=== PATIENT | male | born 1965 | race Caucasian/White ===

== ENCOUNTER 2016-07-03 23:55 | Inpatient (IN) | payer OTHER ==
[~2016-07-03] VITALS: Ht 177.8 cm; Wt 91.0 kg
[~2016-07-03 23:55] MED LIST: ACET500T98 PO; ASPI-535 PO; FISH OIL; GABA300C16 PO; HUMALOG; LANT3I SC; LISI10TA2 PO; METF-382 PO; OMEP20CA16 PO; PRAV10TA43 PO; [UNRECOGNIZED DRUG - OTHER]
[2016-07-04] VITALS (12 sets, daily range): BP systolic 118–138; BP diastolic 56–81; PULSE 71–84; RESP 18–20; Ht 177.8 cm; Wt 91.0 kg
[2016-07-04] MEDS ORDERED: INSU100I27 SQ (00:13)
[2016-07-04] MEDS ORDERED: LOSA100T7 PO (00:13)
[2016-07-04] MEDS ORDERED: AMLO-145 PO (00:13)
[2016-07-04] MEDS ORDERED: SITA100T8 PO (00:13)
[2016-07-04] MEDS ORDERED: TRAM50TA2 PO (00:13)
[2016-07-04] MEDS ORDERED: GEMF600T60 PO (00:13)
[2016-07-04] MEDS ORDERED: NITROGLYCERIN (SL) 0.4 MG TAB SL PRN (01:00)
[2016-07-04] MEDS ORDERED: GLUCOSE GEL 15 GRAM TUBE BUCCAL PRN (01:30)
[2016-07-04] MEDS ORDERED: DEXTROSE 50% 50 ML SYRINGE IV PRN ×2 (01:30)
[2016-07-04] MEDS ORDERED: INSULIN GLARGINE [LANtus] 3 ML PEN SC SCH ×2 (01:30→21:00)
[2016-07-04] MEDS ORDERED: GLUCOSE GEL 15 GRAM TUBE PO PRN ×2 (01:30)
[2016-07-04] MEDS ORDERED: GLUCAGON 1 MG INJ IM PRN (01:30)
[2016-07-04] MEDS ORDERED: traMADol 50 MG TAB PO PRN (01:30)
[2016-07-04] MEDS ORDERED: ACETAMINOPHEN 500 MG TAB PO PRN (01:30)
[2016-07-04] MEDS: morphine 2 MG INJ IV PRN ×4 (01:45→20:31)
[2016-07-04] MEDS: PANTOPRAZOLE (EC) 40 MG TAB PO SCH (06:13)
[2016-07-04] MEDS: IBUPROFEN 400 MG TAB PO PRN (06:57)
[2016-07-04 07:49] LABS: ADD SCAN DIFF NO
[2016-07-04] MEDS ORDERED: metFORMIN 500 MG TAB PO SCH (07:55)
[2016-07-04 07:57] LABS: BASOPHILS % 0.5 % (0.0-2.0); EOSINOPHILS # 0.2 10^3/ul (0.0-0.5); HEMATOCRIT 39.6 % (42.0-52.0); HEMOGLOBIN 12.9 g/dl (14.0-18.0); LYMPHOCYTES # 1.8 10^3/ul (0.8-2.9); LYMPHOCYTES % 32.4 % (15.0-51.0); MEAN CORPUSCULAR HEMOGLOBIN 28.3 pg (29.0-33.0); MEAN CORPUSCULAR HGB CONC 32.6 g/dl (32.0-37.0); MEAN CORPUSCULAR VOLUME 86.8 fl (82.0-101.0); MEAN PLATELET VOLUME 9.7 fl (7.4-10.4); MONOCYTE # 0.4 10^3/ul (0.3-0.9); MONOCYTES % 7.2 % (0.0-11.0); NEUTROPHIL # 3.1 10^3/ul (1.6-7.5); NEUTROPHILS % 55.5 % (39.0-77.0); PLATELET COUNT 232 10^3/UL (140-415); RED BLOOD COUNT 4.56 10^6/ul (4.70-6.10); RED CELL DISTRIBUTION WIDTH 14.8 % (11.5-14.5); WHITE BLOOD COUNT 5.5 10^3/ul (4.8-10.8)
[2016-07-04 08:06] LABS: ALBUMIN 3.4 g/dl (3.3-4.9)
[2016-07-04 08:07] LABS: POTASSIUM 4.4 mmol/L (3.5-5.1)
[2016-07-04 08:09] LABS: BILIRUBIN,INDIRECT 0.2 mg/dl (0-1.1); BILIRUBIN,TOTAL 0.2 mg/dl (0.2-1.3); CREATININE 1.35 mg/dl (0.61-1.24); TOTAL PROTEIN 6.8 g/dl (6.1-8.1)
[2016-07-04 08:10] LABS: CALCIUM 8.3 mg/dl (8.4-10.2); CHOL/HDL RATIO 3.7 RATIO
--- NOTE | 2016-07-04 08:20 | HP ---
DATE OF ADMISSION: 07/03/2016 TIME SEEN: 2300 CHIEF COMPLAINT: Headache, neck pain, and chest pain. HISTORY OF PRESENT ILLNESS: The patient is a 50-year-old male with a history of hypertension, diabe min, herniated disk with chronic neck and back pain who initially presented at [facility] with the osvaldo pandey-stated chief complaint. He stated his chest pain is pressure-like and is diffuse with associat ed numbness on his left hand. His chest pain started about 4 days ago. He stated he has been havin g chest pain for the past 2 years, and nowadays he has also noted shortness of breath with exertion. His chest pain is also somehow worse with exertion. He states he has been following with a cardio logist as an outpatient, and the plan was for cardiac catheterizations, but due to insurance reasons it has not been done yet. As far as his headache is concerned, it also started about 4 days ago an d it is diffuse and radiates down his back of the neck to his upper back. He stated he works with [employer] and about 2 years ago he was told that he had 3 herniated disks in the lumbar area as well as some herniated disk in the upper back. He denied any fever, chills, nausea, vomiting. On physical examination, I have noticed that he had a swollen left elbow and at that time, he stated th at months ago he actually fell down, hitting his elbow, and since then he has noticed elbow swelling which appears to be fluid filled. He did go to a hospital for this, and he thinks he was given ant ibiotic or some other medication which he does remember, but without any help. When the patient was at [facility], a head CT was done which was negative. A chest x-ray was also n egative. His first troponin was negative. Laboratory value over there showed a creatinine of 1.65, and it appears that in 2013, his creatinine was 1.39. His glucose was 245. Otherwise, the rest of his basic labs were within acceptable range. REVIEW OF SYSTEMS: A 12-point review was performed. Negative except as noted in the HPI. PAST MEDICAL HISTORY: As per HPI. PAST SURGICAL HISTORY: Hernia repair in 2014 and also he had a history of right knee surgery. SOCIAL HISTORY: He smoked a pack or 2 per day for over 20 years, but he quit a year ago. He did sm jayne cocaine for about a year in the past, the last time was about 4 years ago, and drinks alcohol oc casionally. ALLERGIES: NO KNOWN DRUG ALLERGIES. PHYSICAL EXAMINATION VITAL SIGNS: Stable. GENERAL: The patient lying in bed, appears slightly uncomfortable due to headache. He is Macanese-s peaking only, but answering questions appropriately through a interpreter deaf. HEENT: No obvious head deformity. Pupils are reactive to light. EXTREMITIES: Intact. CARDIOVASCULAR: Regular rate and rhythm ____. LUNGS: Clear. ABDOMEN: Soft, nontender, nondistended. Positive bowel sounds. EXTREMITIES: There is swelling with very minimal discomfort to touch in the elbow area which appear s to be fluid-filled. LABORATORY: Pertinent positive results from [facility] as mentioned in the HPI. IMPRESSION: 1. Chest pain, need to rule out acute coronary syndrome. 2. Headache and neck pain, likely related to his known herniated disk. 3. Presumed acute on chronic kidney disease. 4. Diabetes with hyperglycemia. 5. History of hypertension. 6. Left elbow swelling, status post fall 3 months ago. 7. History of chronic back pain secondary to herniated disk. PLAN: Continue telemetry monitoring. We will trend his troponins. He will be placed on oxygen, as pirin, statin, and will be given as needed nitroglycerin and morphine. We will obtain a 2-D echo an d cardiology consult. As far as his headache and neck pain is concerned, a head CT at [facility] wa s negative. It seems like his neck pain is chronic and has been going on for about 2 years along wi th his lower back pain, and according to the patient, it is secondary to herniated disk. Will obtai n imaging of his spine. He will be provided pain medication. He will be placed on insulin for his diabetes and will check A1c along with fasting lipid and TSH. As far as his left elbow swelling is concerned, I believe it needs to be tapped, but prior to that, will order imaging. Further workup and management will be per clinical course. Dictated By: MARY KATE MCDONOUGH/MANDA Conf#: [id number] DID#: [id number]
[2016-07-04] MEDS: AMLODIPINE 5 MG TAB PO SCH (08:28)
[2016-07-04] MEDS: GABAPENTIN 300 MG CAP PO SCH ×3 (08:28→20:32)
[2016-07-04] MEDS: GEMFIBROZIL 600 MG TAB PO SCH ×2 (08:28→20:32)
[2016-07-04] MEDS: ASPIRIN (EC) 81 MG TAB PO SCH (08:29)
[2016-07-04] MEDS: LOSARTAN 50 MG TAB PO SCH (08:29)
[2016-07-04] MEDS: LISINOPRIL 10 MG TAB PO SCH (08:29)
[2016-07-04] MEDS: LINAGLIPTIN 5 MG TABLET PO SCH (08:29)
[2016-07-04] MEDS: INSULIN ASPART [NOVOLOG] 3 ML PEN SC SCH ×6 (08:33→20:51)
--- NOTE | 2016-07-04 09:40 | RADRPT ---
PROCEDURE: XR Chest 1 View. CLINICAL INDICATION: Chest pain TECHNIQUE: AP view of the chest was obtained. COMPARISON: February 01, 2014 FINDINGS: The cardiomediastinal silhouette is within normal limits. Subsegmental atelectasis is seen at the le ft lung base. No consolidations are identified. No pneumothorax is seen. Osseous structures are in tact. IMPRESSION: Subsegmental atelectasis at the left lung base. RPTAT: AA .Michael Brambila MD, Date Time Electronically viewed and signed by .Michael Brambila MD, on 07/04/2016 09:39 .P/
--- NOTE | 2016-07-04 12:32 | PN ---
Date/Time of Note Date/Time of Note DATE: 07/04/16 TIME: 12:26 Assessment/Plan VTE Prophylaxis VTE Prophylaxis Intervention: SCD's Lines/Catheters IV Catheter Type (from Nrs): Peripheral IV Urinary Cath still in place: No Assessment/Plan Assessment/Plan 1. atypical chest pain, troponins negative, ECHO done, to see pt 2. Headache and neck pain, likely related to his known herniated disk. 3. [facility] oN CKD due to prerenal azotemia 4. Diabetes with hyperglycemia. 5. History of hypertension. 6. Left elbow swelling and cellulitis , status post fall 3 months ago. 7. History of chronic back pain secondary to herniated disk. PLAN: plan for left elbow arthrocentesis today, fluid studies ordered d/c metformi, increase lantus to 20, add novolog 8 units with meal time Cadiologist consulted, ECHO has been ordered will follow up Subjective 24 Hr Interval Summary Free Text/Dictation no chest pain, elbow painful, plan for arthrocentesis from it , onIV abx, afebrile Exam/Review of Systems Vital Signs Vitals Vital Signs Date Time Temp Pulse Resp B/P Pulse Ox O2 Delivery O2 Flow Rate FiO2 07/04/16 08:11 75 07/04/16 07:31 98.6 18 127/72 95 Intake and Output 07/03/16 07/03/16 07/04/16 15:00 23:00 07:00 Intake Total 250 ml Balance 250 ml Exam GENERAL: The patient lying in bed, appears slightly uncomfortable due to headache. He is [place]bourgish-speaking only, but answering questions appropriately through a field support representative. HEENT: No obvious head deformity. Pupils are reactive to light. EXTREMITIES: Intact. CARDIOVASCULAR: Regular rate and rhythm ____. LUNGS: Clear. ABDOMEN: Soft, nontender, nondistended. Positive bowel sounds. EXTREMITIES: There is swelling with very minimal discomfort to touch in the elbow area which appears to be fluid-filled Results Result Diagram: 07/04/16 0640 07/04/16 0640 Results 24 hrs Laboratory Tests Test 07/04/16 00:34 07/04/16 01:20 07/04/16 06:40 07/04/16 08:04 Bedside Glucose 91 317 H Troponin I < 0.012 < 0.012 White Blood Count 5.5 # Red Blood Count 4.56 L Hemoglobin 12.9 L Hematocrit 39.6 L Mean Corpuscular Volume 86.8 Mean Corpuscular Hemoglobin 28.3 L Mean Corpuscular Hemoglobin Concent 32.6 Red Cell Distribution Width 14.8 H Platelet Count 232 Mean Platelet Volume 9.7 # Neutrophils % 55.5 Lymphocytes % 32.4 Monocytes % 7.2 Eosinophils % 4.0 Basophils % 0.5 Nucleated Red Blood Cells % 0.0 Neutrophils # 3.1 Lymphocytes # 1.8 Monocytes # 0.4 Eosinophils # 0.2 Basophils # 0.0 Nucleated Red Blood Cells # 0.0 Sodium Level 133 L Potassium Level 4.4 Chloride Level 100 Carbon Dioxide Level 28 Anion Gap 9 Blood Urea Nitrogen 25 H Creatinine 1.35 H Glucose Level 355 H Hemoglobin A1c 12.2 H Calcium Level 8.3 L Total Bilirubin 0.2 Direct Bilirubin 0.00 Indirect Bilirubin 0.2 Aspartate Amino Transf (AST/SGOT) 25 Alanine Aminotransferase (ALT/SGPT) 37 Alkaline Phosphatase 102 Total Protein 6.8 Albumin 3.4 Globulin 3.40 H Albumin/Globulin Ratio 1.00 Triglycerides Level 185 H Cholesterol Level 173 LDL Cholesterol, Calculated 90 HDL Cholesterol 46 Cholesterol/HDL Ratio 3.7 Medications Medications Current Medications Insulin Glargine (Lantus) 15 unit QHS SC Last administered on 07/04/16 02:46; Admin Dose 15 UNIT; Start 07/04/16 at 01:30 Diagnostic Test (Pha) (Accu-Chek) 1 ea 02 XX ; Start 07/05/16 at 02:00 Morphine Sulfate (morphine) 2 mg Q4H PRN IV PAIN Last administered on 06:57; Admin Dose 2 MG; Start 07/04/16 at 01:00 Ibuprofen (Motrin) 400 mg Q6H PRN PO PAIN OR TEMP ABOVE 38C Last administered on 07/04/16 06:57; Admin Dose 400 MG; Start 07/04/16 at 01:00 Nitroglycerin (Nitroglycerin (Sl Tab) 0.4 Mg) 1 tab Q5M PRN SL ANGINA; Start at 01:00 Acetaminophen (Tylenol Tab) 500 mg PRN PRN PO PAIN; Start 07/04/16 at 01:30 Amlodipine Besylate (Norvasc) 5 mg DAILY PO Last administered on 07/04/16 08: 28; Admin Dose 5 MG; Start 07/04/16 at 09:00 Aspirin (Halfprin) 81 mg DAILY PO Last administered on 07/04/16 08:29; Admin Dose 81 MG; Start 07/04/16 at 09:00 Gabapentin (Neurontin) 300 mg TID PO Last administered on 07/04/16 08:28; Admin Dose 300 MG; Start 07/04/16 at 09:00 Gemfibrozil (Lopid) 600 mg BID PO Last administered on 07/04/16 08:28; Admin Dose 600 MG; Start 07/04/16 at 09:00 Lisinopril (Zestril) 10 mg DAILY PO Last administered on 07/04/16 08:29; Admin Dose 10 MG; Start 07/04/16 at 09:00 Losartan Potassium (Cozaar) 100 mg DAILY PO Last administered on 07/04/16 08: 29; Admin Dose 100 MG; Start 07/04/16 at 09:00 Pantoprazole (Protonix Tab) 40 mg DAILY@06 PO Last administered on 07/04/16 06 :13; Admin Dose 40 MG; Start 07/04/16 at 06:00 Atorvastatin Calcium (Lipitor) 10 mg DAILY@21 PO ; Start 07/04/16 at 21:00 Linagliptin (Tradjenta) 5 mg DAILY PO Last administered on 07/04/16 08:29; Admin Dose 5 MG; Start 07/04/16 at 09:00 Tramadol HCl (Ultram) 50 mg BID PRN PO PAIN Last administered on 07/04/16 01: 46; Admin Dose 50 MG; Start 07/04/16 at 01:30 Miscellaneous Information 1 ea NOTE XX ; Start 07/04/16 at 01:30 Glucose (Glutose) 15 gm Q15M PRN PO DECREASED GLUCOSE; Start 07/04/16 at 01:30 Glucose (Glutose) 22.5 gm Q15M PRN PO DECREASED GLUCOSE; Start 07/04/16 at 01: 30 Dextrose (D50w Syringe) 25 ml Q15M PRN IV DECREASED GLUCOSE; Start 07/04/16 at 01:30 Dextrose (D50w Syringe) 50 ml Q15M PRN IV DECREASED GLUCOSE; Start 07/04/16 at 01:30 Glucagon (Glucagen) 1 mg Q15M PRN IM DECREASED GLUCOSE; Start 07/04/16 at 01:30 Glucose (Glutose) 15 gm Q15M PRN BUCCAL DECREASED GLUCOSE; Start 07/04/16 at 01 :30 MELISA VALENCIA MD Jul 04, 2016 12:32
[2016-07-04 13:39] LABS: SYNOVIAL FLUID CLARITY Bloody; SYNOVIAL FLUID COLOR Red; SYNOVIAL FLUID WBC 474 /cmm (0-150)
[2016-07-04 14:02] LABS: LYMPHOCYTES,SYNOVIAL FLUID 61; NEUTROPHILS,SYNOVIAL FLUID 22 % (0-25)
[2016-07-04 14:09] LABS: FLUID TYPE SYNOVIAL FLUID
[2016-07-04 14:21] LABS: FLUID GLUCOSE 264 mg/dl; FLUID TOTAL PROTEIN 2.1 g/dl
--- NOTE | 2016-07-04 14:38 | RADRPT ---
PROCEDURE: Ultrasound guided left elbow subcutaneous fluid collection aspiration. CLINICAL INDICATION: History of trauma and fluid collection overlying the left elbow posteriorly. TECHNIQUE: Prior to the procedure, informed consent was obtained. Risks including bleeding and in fection were explained to the patient. The patient understood was willing to proceed. A procedural pause was performed. The patient's name, date of , and procedure to be performed were verifie d. Using local anesthetic, sterile technique and ultrasound guidance, a 20-gauge needle was advanced in to the fluid collection in the left elbow lobe. Approximately 7 ml of serosanguineous fluid was asp irated. The patient tolerated the procedure well. COMPARISON: None. FINDINGS: Images demonstrate the fluid collection posterior to the elbow within the soft tissues. Subsequent images demonstrate the needle entering the fluid collection and final images demonstrate only minima l fluid left at the site. IMPRESSION: 1. Satisfactory ultrasound-guided aspiration of the left posterior elbow fluid collection. RPTAT: QQ .Sandro Wynn MD, Date Time Electronically viewed and signed by .Sandro Wynn MD, on 07/04/2016 14:37 .R/
--- NOTE | 2016-07-04 14:49 | RADRPT ---
PROCEDURE: XR left elbow. CLINICAL INDICATION: Trauma due to a fall. Left elbow pain and swelling. TECHNIQUE: 3 views. Frontal, lateral, and oblique. COMPARISON: No prior study is available for comparison. FINDINGS: There is no fracture or dislocation. There is soft tissue swelling posterior to the olecranon. There is an olecranon spur. There is no joint effusion. Articular surfaces are intact. There is no lytic or blastic lesion. There is no radiopaque foreign body. IMPRESSION: 1. Olecranon spur. 2. Soft tissue swelling posterior to the olecranon. 3. No joint effusion. 4. Otherwise normal images of the left elbow. RPTAT: QQ .Sandro Wynn MD, MD Date Time Electronically viewed and signed by .Sandro Wynn MD, on 07/04/2016 14:48 .R/
--- NOTE | 2016-07-04 14:49 | RADRPT ---
PROCEDURE: XR Thoracic Spine. CLINICAL INDICATION: Trauma due to a fall. Back pain. TECHNIQUE: Three views. Frontal, lateral, and lateral swimmers. COMPARISON: None available FINDINGS: There is normal stature and alignment of the vertebrae. There is no fracture. There is no lytic or blastic lesion. The disk height is normal. There are degenerative changes with small osteophytes in the mid thoraci c spine. The paravertebral soft tissues are unremarkable. IMPRESSION: 1. Mild degenerative change. 2. Otherwise unremarkable images of the thoracic spine. RPTAT: QQ .Sandro Wynn MD, Date Time Electronically viewed and signed by .Sandro Wynn MD, on 07/04/2016 14:49 .R/
--- NOTE | 2016-07-04 14:51 | RADRPT ---
PROCEDURE: XR Cervical Spine. CLINICAL INDICATION: Trauma due to a fall. Neck pain. TECHNIQUE: Three views of the cervical spine were performed. Frontal, lateral, and AP open-mouth o dontoid. The images were reviewed on a PACS workstation. COMPARISON: None. FINDINGS: This is a limited study with C7 not visualized on the lateral view. The visualized vertebrae demons trate normal stature and alignment. There is no fracture of the visualized vertebrae. There is no lytic or blastic lesion. The disk height is normal. The prevertebral soft tissues are normal. IMPRESSION: 1. Limited study with C7 not visualized on the lateral view. Of note, a swimmer lateral view was obtained with the thoracic spine images done later the same day and demonstrates normal C7. 2. Otherwise unremarkable images of the cervical spine. RPTAT: QQ .Sandro Wynn MD, Date Time Electronically viewed and signed by .Sandro Wynn MD, on 07/04/2016 14:51 .R/
--- NOTE | 2016-07-04 14:52 | RADRPT ---
PROCEDURE: XR Lumbar Spine. CLINICAL INDICATION: Trauma due to a fall. Back pain. TECHNIQUE: 3 views. AP, lateral, and cone-down lateral view of the lumbar spine were obtained. COMPARISON: No prior studies are available for comparison. FINDINGS: There is normal stature and alignment of the vertebrae. There is no fracture. There is no lytic or blastic lesion. There are degenerative changes of the lower thoracic spine with osteophytes noted. Vascular calcifications are present consistent with atherosclerosis. IMPRESSION: 1. Degenerative changes of the lower thoracic spine. 2. Atherosclerosis. 3. Otherwise unremarkable images of the lumbar spine. RPTAT: QQ .Sandro Wynn MD, MD Date Time Electronically viewed and signed by .Sandro Wynn MD, on 07/04/2016 14:52 .R/
--- NOTE | 2016-07-04 15:00 | RADRPT ---
Vent Rate: 72 bpm RR Interval: 0 msec CA Interval: 160 msec QRS Duration: 84 msec QT Interval: 396 msec QTC Interval: 433 msec P-R-T [place]: 49 - 23 - 43 degrees Normal sinus rhythm Cannot rule out Anterior infarct , age undetermined Abnormal ECG Electronically Signed By: Bc Lanza [id number]
--- NOTE | 2016-07-04 16:11 | RADRPT ---
Echocardiogram Report Patient Name: RANDY DOYLE Gender: Male Date: 1965 Study Date: 04-Jul-2016 Preparation Plant Repairer: Rashmi Medina [facility] Location: [id number] Ref. Physician: MARY KATE DOMINGUEZ Quality: Good Procedures: Transthoracic echocardiogram with complete 2D, M-Mode, and doppler examination. Indications: Chest Pain. 2D/M Mode Doppler Measurement Value Normal Ranges Measurement Value Normal Ranges LVIDd 2D 4.2 3.5 - 5.6 cm AV Peak Ras 1.2 m/sec LVIDs 2D 2.0 2.1 - 4.1 cm AV Peak PG 5.7 mmHg LVPWd 2D 1.0 0.6 - 1.1 cm LVOT Peak Ras 0.9 m/sec IVSd 2D 0.8 0.6 - 1.1 cm LVOT Peak PG 2.9 mmHg AoR Diam 2D 3.0 2.0 - 3.7 cm MV E Peak Ras 0.7 m/sec EDV 2D 77.5 cm3 MV A Peak Ars 0.5 m/sec ESV 2D 8.5 cm3 MV E/A 1.4 LA Dimen 2D 4.2 2.3 - 4.0 cm MV Decel Time 173 msec MV Decel [place] 4 MV E/A 1.4 TR Peak Ras 2.1 m/sec TR Peak PG 18.3 mmHg RVSP 21.0 mmHg Findings Left Ventricle: Normal left ventricular systolic function. Normal left ventricular cavity size. Normal left ventricular wall thickness. Ejection fraction is visually estimated at 6065 %. Tissue Doppler/Mitral Doppler indices are within normal limits. Right Ventricle: Normal right ventricular size. Normal right ventricular systolic function. Left Atrium: The left atrium is normal in size. Right Atrium: The right atrium is normal in size. Mitral Valve: Normal appearance and function of the mitral valve with trace physiologic regurgitation. Aortic Valve: Normal appearance of the aortic valve. No significant aortic stenosis or insufficiency. Tricuspid Valve: Normal appearance and function of the tricuspid valve with trace physiologic regurgitation. Estimated peak PA systolic pressure 21 mmHg. Pulmonic Valve: Normal pulmonic valve appearance. Pericardium: Normal pericardium with no significant pericardial effusion. Aorta: Normal aortic root. IVC: Normal size and normal respiratory collapse consistent with normal right atrial pressure. Conclusions 1.The left ventricle is normal in size and systolic function. 2.Estimated left ventricular ejection fraction of 60-65%. Electronically Signed By: Mumtaz Gonzales 04-Jul-2016 16:10:21 -0700 Patient Name: RANDY DOYLE Study Date: 04-Jul-2016 [id number]
--- NOTE | 2016-07-04 17:01 | CONS ---
Date/Time of Note Date/Time of Note DATE: 07/04/16 TIME: 16:48 Assessment/Plan Assessment/Plan Chief Complaint/Hosp Course Assessment: Typical chest pain - ruled out for myocardial infarction Hypertension Dyslipidemia Diabetes mellitus Left elbow swelling - status post joint aspiration, management per primary team Recommendations -echocardiogram showed normal LVEF 60-65% -continue aspirin 81mg daily -continue losartan and amlodipine -continue statin and gemfibrozil -Lexiscan SPECT tomorrow (sounds like prior outpatient stress test was an ETT and nondiagnostic) Problems: Consultation Date/Type/Reason Admit Date/Time Jul 03, 2016 at 23:55 Type of Consultation: Cardiology Reason for Consultation chest pain Hx of Present Illness The patient is a 50 year-old male with hypertension and diabetes mellitus who presents with complaints of chest pain, neck and back pain, and headache. His chest pain has been ongoing for the past two years. He describes a retrosternal pressure that is brought on by exertion, and associated with shortness of breath. He reports having a cardiac stress test with his outpatient engrosser several months ago, and from his description, the test appears to be nondiagnostic due to inadequate exercise capacity. He was planned for a coronary angiography, which has not yet been performed. His neck and back pain has been chronic and he is noted on x-ray to have degenerative changes in the lumbar spine. He was also noted to have left elbow swelling, and is status post joint aspiration. 14 point review of systems negative other than per HPI. Past Medical History Hypertension Dyslipidemia Diabetes mellitus Past Surgical History Hernia repair Right knee surgery Family History Significant Family History: no pertinent family hx Social History Alcohol Use: occasionally Smoking Status: Former smoker Drug Use: none Exam/Review of Systems Vital Signs Vitals Vital Signs Date Time Temp Pulse Resp B/P Pulse Ox O2 Delivery O2 Flow Rate FiO2 07/04/16 16:19 79 07/04/16 15:28 98.5 18 118/62 96 Intake and Output 07/03/16 07/03/16 07/04/16 15:00 23:00 07:00 Intake Total 250 ml Balance 250 ml Exam Constitutional: alert, well developed Psych: nl mood/affect, no complaints Head: atraumatic, normocephalic Eyes: nl conjunctiva, nl lids ENMT: nl external ears & nose, nl nasal mucosa & septum Neck: non-tender, supple, No jvd Respiratory: clear to auscultation, normal air movement Cardiovascular: regular rate and rhythm Gastrointestinal: non-tender, soft Musculoskeletal: nl extremities to inspection Extremities: No clubbing, No cyanosis, No edema Neurological: nl mental status, nl speech Results Result Diagram: 07/04/16 0640 07/04/16 0640 Results 24 hrs Laboratory Tests Test 07/04/16 00:34 07/04/16 01:20 07/04/16 06:40 07/04/16 08:04 Bedside Glucose 91 317 H Troponin I < 0.012 < 0.012 White Blood Count 5.5 # Red Blood Count 4.56 L Hemoglobin 12.9 L Hematocrit 39.6 L Mean Corpuscular Volume 86.8 Mean Corpuscular Hemoglobin 28.3 L Mean Corpuscular Hemoglobin Concent 32.6 Red Cell Distribution Width 14.8 H Platelet Count 232 Mean Platelet Volume 9.7 # Neutrophils % 55.5 Lymphocytes % 32.4 Monocytes % 7.2 Eosinophils % 4.0 Basophils % 0.5 Nucleated Red Blood Cells % 0.0 Neutrophils # 3.1 Lymphocytes # 1.8 Monocytes # 0.4 Eosinophils # 0.2 Basophils # 0.0 Nucleated Red Blood Cells # 0.0 Sodium Level 133 L Potassium Level 4.4 Chloride Level 100 Carbon Dioxide Level 28 Anion Gap 9 Blood Urea Nitrogen 25 H Creatinine 1.35 H Glucose Level 355 H Hemoglobin A1c 12.2 H Calcium Level 8.3 L Total Bilirubin 0.2 Direct Bilirubin 0.00 Indirect Bilirubin 0.2 Aspartate Amino Transf (AST/SGOT) 25 Alanine Aminotransferase (ALT/SGPT) 37 Alkaline Phosphatase 102 Total Protein 6.8 Albumin 3.4 Globulin 3.40 H Albumin/Globulin Ratio 1.00 Triglycerides Level 185 H Cholesterol Level 173 LDL Cholesterol, Calculated 90 HDL Cholesterol 46 Cholesterol/HDL Ratio 3.7 Test 07/04/16 11:45 07/04/16 12:52 Body Fluid Type SYNOVIAL FLUID Body Fluid Glucose 264 Body Fluid Total Protein 2.1 Synovial Fluid Source Others Synovial Fluid Color Red Synovial Fluid Appearance Bloody Synovial Fluid Volume 7.0 H Synovial Fluid WBC 474 H Synovial Fluid Neutrophils 22 Synovial Fluid Lymphocytes 61 Synovial Fluid Monocytes 15 Synovial Fluid Other Cells 2 Synovial Fluid Crystals No crystals seen Bedside Glucose 268 H Medications Medications Current Medications Diagnostic Test (Pha) (Accu-Chek) 1 ea 02 XX ; Start 07/05/16 at 02:00 Morphine Sulfate (morphine) 2 mg Q4H PRN IV PAIN Last administered on 12:57; Admin Dose 2 MG; Start 07/04/16 at 01:00 Ibuprofen (Motrin) 400 mg Q6H PRN PO PAIN OR TEMP ABOVE 38C Last administered on 07/04/16 06:57; Admin Dose 400 MG; Start 07/04/16 at 01:00 Nitroglycerin (Nitroglycerin (Sl Tab) 0.4 Mg) 1 tab Q5M PRN SL ANGINA; Start at 01:00 Acetaminophen (Tylenol Tab) 500 mg PRN PRN PO PAIN; Start 07/04/16 at 01:30 Amlodipine Besylate (Norvasc) 5 mg DAILY PO Last administered on 07/04/16 08: 28; Admin Dose 5 MG; Start 07/04/16 at 09:00 Aspirin (Halfprin) 81 mg DAILY PO Last administered on 07/04/16 08:29; Admin Dose 81 MG; Start 07/04/16 at 09:00 Gabapentin (Neurontin) 300 mg TID PO Last administered on 07/04/16 12:57; Admin Dose 300 MG; Start 07/04/16 at 09:00 Gemfibrozil (Lopid) 600 mg BID PO Last administered on 07/04/16 08:28; Admin Dose 600 MG; Start 07/04/16 at 09:00 Lisinopril (Zestril) 10 mg DAILY PO Last administered on 07/04/16 08:29; Admin Dose 10 MG; Start 07/04/16 at 09:00 Losartan Potassium (Cozaar) 100 mg DAILY PO Last administered on 07/04/16 08: 29; Admin Dose 100 MG; Start 07/04/16 at 09:00 Pantoprazole (Protonix Tab) 40 mg DAILY@06 PO Last administered on 07/04/16 06 :13; Admin Dose 40 MG; Start 07/04/16 at 06:00 Atorvastatin Calcium (Lipitor) 10 mg DAILY@21 PO ; Start 07/04/16 at 21:00 Linagliptin (Tradjenta) 5 mg DAILY PO Last administered on 07/04/16 08:29; Admin Dose 5 MG; Start 3/29/17 at 09:00 Tramadol HCl (Ultram) 50 mg BID PRN PO PAIN Last administered on 07/04/16t 01: 46; Admin Dose 50 MG; Start 07/04/16 at 01:30 Miscellaneous Information 1 ea NOTE XX ; Start 07/04/16 at 01:30 Glucose (Glutose) 15 gm Q15M PRN PO DECREASED GLUCOSE; Start 07/04/16 at 01:30 Glucose (Glutose) 22.5 gm Q15M PRN PO DECREASED GLUCOSE; Start 07/04/16 at 01: 30 Dextrose (D50w Syringe) 25 ml Q15M PRN IV DECREASED GLUCOSE; Start 07/04/16 at 01:30 Dextrose (D50w Syringe) 50 ml Q15M PRN IV DECREASED GLUCOSE; Start 07/04/16 at 01:30 Glucagon (Glucagen) 1 mg Q15M PRN IM DECREASED GLUCOSE; Start 07/04/16 at 01:30 Glucose (Glutose) 15 gm Q15M PRN BUCCAL DECREASED GLUCOSE; Start 07/04/16 at 01 :30 Insulin Glargine (Lantus) 20 unit QHS SC ; Start 07/04/16 at 21:00 DONNA LEWIS MD Jul 04, 2016 16:58
[2016-07-04] MEDS ORDERED: ATORVASTATIN 10 MG TAB PO SCH (21:00)
[2016-07-05] VITALS (9 sets, daily range): BP systolic 103–142; BP diastolic 61–80; PULSE 74–82; RESP 17–20
[2016-07-05] MEDS ORDERED: ACCU-CHEK XX SCH (02:00)
[2016-07-05] MEDS: morphine 2 MG INJ IV PRN (02:10)
[2016-07-05] MEDS: PANTOPRAZOLE (EC) 40 MG TAB PO SCH (06:30)
[2016-07-05 08:06] LABS: ADD SCAN DIFF NO
[2016-07-05 08:07] LABS: BASOPHILS % 0.7 % (0.0-2.0); EOSINOPHILS # 0.3 10^3/ul (0.0-0.5); EOSINOPHILS % 4.3 % (0.0-7.0); HEMATOCRIT 40.8 % (42.0-52.0); HEMOGLOBIN 13.3 g/dl (14.0-18.0); LYMPHOCYTES % 34.4 % (15.0-51.0); MEAN CORPUSCULAR HEMOGLOBIN 28.5 pg (29.0-33.0); MEAN CORPUSCULAR HGB CONC 32.6 g/dl (32.0-37.0); MEAN CORPUSCULAR VOLUME 87.4 fl (82.0-101.0); MEAN PLATELET VOLUME 9.2 fl (7.4-10.4); MONOCYTE # 0.5 10^3/ul (0.3-0.9); MONOCYTES % 7.7 % (0.0-11.0); NEUTROPHIL # 3.1 10^3/ul (1.6-7.5); NEUTROPHILS % 52.6 % (39.0-77.0); PLATELET COUNT 238 10^3/UL (140-415); RED BLOOD COUNT 4.67 10^6/ul (4.70-6.10); RED CELL DISTRIBUTION WIDTH 14.6 % (11.5-14.5); WHITE BLOOD COUNT 5.8 10^3/ul (4.8-10.8)
[2016-07-05] MEDS: IBUPROFEN 400 MG TAB PO PRN (08:18)
[2016-07-05] MEDS: LINAGLIPTIN 5 MG TABLET PO SCH (08:19)
[2016-07-05] MEDS: LOSARTAN 50 MG TAB PO SCH (08:19)
[2016-07-05] MEDS: GABAPENTIN 300 MG CAP PO SCH ×2 (08:19→14:24)
[2016-07-05] MEDS: AMLODIPINE 5 MG TAB PO SCH (08:19)
[2016-07-05] MEDS: ASPIRIN (EC) 81 MG TAB PO SCH (08:19)
[2016-07-05] MEDS: GEMFIBROZIL 600 MG TAB PO SCH (08:19)
[2016-07-05] MEDS: LISINOPRIL 10 MG TAB PO SCH (08:20)
[2016-07-05] MEDS: INSULIN ASPART [NOVOLOG] 3 ML PEN SC SCH ×4 (08:26→14:29)
[2016-07-05 08:32] LABS: INR 0.88; PROTIME 11.9 Sec (12.2-14.2); PT RATIO 0.9
[2016-07-05 08:33] LABS: PARTIAL THROMBOPLASTIN TIME 27.9 Sec (25.0-35.0)
[2016-07-05 08:40] LABS: POTASSIUM 4.8 mmol/L (3.5-5.1)
[2016-07-05 08:43] LABS: CREATININE 1.41 mg/dl (0.61-1.24)
[2016-07-05] MEDS ORDERED: REGADENOSON 0.4 MG/5 ML SYG ONE (12:47)
--- NOTE | 2016-07-05 14:26 | CONS ---
Date/Time of Note Date/Time of Note DATE: 07/05/16 TIME: 14:23 Assessment/Plan Assessment/Plan Chief Complaint/Hosp Course Assessment: Chest pain - ruled out for myocardial infarction Hypertension Dyslipidemia Diabetes mellitus Acute kidney injury vs chronic kidney disease Left elbow swelling - status post joint aspiration, management per primary team Recommendations -echocardiogram showed normal LVEF 60-65% -continue aspirin 81mg daily -continue losartan 100mg daily -increase amlodipine to 5mg BID -continue statin and gemfibrozil -follow up Lexiscan SPECT results Problems: Consultation Date/Type/Reason Admit Date/Time Jul 03, 2016 at 23:55 Initial Consult Date Type of Consultation: Cardiology 24 HR Interval Summary Free Text/Dictation Lexiscan SPECT today. Detailed Summary Additional Comments 14 point review of systems without changes. Exam/Review of Systems Vital Signs Vitals Vital Signs Date Time Temp Pulse Resp B/P Pulse Ox O2 Delivery O2 Flow Rate FiO2 07/05/16 12:33 77 07/05/16 11:26 98.1 18 124/80 96 Intake and Output 07/04/16 07/04/16 07/05/16 15:00 23:00 07:00 Intake Total 900 ml 500 ml Balance 900 ml 500 ml Exam Constitutional: alert, well developed Psych: nl mood/affect, no complaints Head: atraumatic, normocephalic Eyes: nl conjunctiva, nl lids ENMT: nl external ears & nose, nl nasal mucosa & septum Neck: non-tender, supple, No jvd Respiratory: clear to auscultation, normal air movement Cardiovascular: regular rate and rhythm Gastrointestinal: non-tender, soft Musculoskeletal: nl extremities to inspection Extremities: No clubbing, No cyanosis, No edema Neurological: nl mental status, nl speech Results Result Diagram: 07/05/16 0740 07/05/16 0740 Results 24 hrs Laboratory Tests Test 07/04/16 17:18 07/04/16 20:45 07/05/16 02:15 07/05/16 07:40 Bedside Glucose 182 275 H 217 White Blood Count 5.8 Red Blood Count 4.67 L Hemoglobin 13.3 L Hematocrit 40.8 L Mean Corpuscular Volume 87.4 Mean Corpuscular Hemoglobin 28.5 L Mean Corpuscular Hemoglobin Concent 32.6 Red Cell Distribution Width 14.6 H Platelet Count 238 Mean Platelet Volume 9.2 Neutrophils % 52.6 Lymphocytes % 34.4 Monocytes % 7.7 Eosinophils % 4.3 Basophils % 0.7 Nucleated Red Blood Cells % 0.0 Neutrophils # 3.1 Lymphocytes # 2.0 Monocytes # 0.5 Eosinophils # 0.3 Basophils # 0.0 Nucleated Red Blood Cells # 0.0 Prothrombin Time 11.9 L Prothrombin Time Ratio 0.9 INR International Normalized Ratio 0.88 Activated Partial Thromboplast Time 27.9 Sodium Level 135 Potassium Level 4.8 Chloride Level 100 Carbon Dioxide Level 32 H Anion Gap 8 Blood Urea Nitrogen 26 H Creatinine 1.41 H Glucose Level 247 #H Calcium Level 9.0 Test 07/05/16 08:18 07/05/16 14:18 Bedside Glucose 231 H 213 Medications Medications Current Medications Diagnostic Test (Pha) (Accu-Chek) 1 ea 02 XX Last administered on 07/05/16 02: 44; Admin Dose 1 EA; Start 07/05/16 at 02:00 Morphine Sulfate (morphine) 2 mg Q4H PRN IV PAIN Last administered on 02:10; Admin Dose 2 MG; Start 07/04/16 at 01:00 Ibuprofen (Motrin) 400 mg Q6H PRN PO PAIN OR TEMP ABOVE 38C Last administered on 07/05/16 08:18; Admin Dose 400 MG; Start 07/04/16 at 01:00 Nitroglycerin (Nitroglycerin (Sl Tab) 0.4 Mg) 1 tab Q5M PRN SL ANGINA; Start at 01:00 Acetaminophen (Tylenol Tab) 500 mg PRN PRN PO PAIN Last administered on 10:43; Admin Dose 500 MG; Start 07/04/16 at 01:30 Amlodipine Besylate (Norvasc) 5 mg DAILY PO Last administered on 07/05/16 08: 19; Admin Dose 5 MG; Start 07/04/16 at 09:00 Aspirin (Halfprin) 81 mg DAILY PO Last administered on 07/05/16 08:19; Admin Dose 81 MG; Start 07/04/16 at 09:00 Gabapentin (Neurontin) 300 mg TID PO Last administered on 07/05/16 08:19; Admin Dose 300 MG; Start 07/04/16 at 09:00 Gemfibrozil (Lopid) 600 mg BID PO Last administered on 07/05/16 08:19; Admin Dose 600 MG; Start 07/04/16 at 09:00 Lisinopril (Zestril) 10 mg DAILY PO Last administered on 07/05/16 08:20; Admin Dose 10 MG; Start 07/04/16 at 09:00 Losartan Potassium (Cozaar) 100 mg DAILY PO Last administered on 07/05/16 08: 19; Admin Dose 100 MG; Start 07/04/16 at 09:00 Pantoprazole (Protonix Tab) 40 mg DAILY@06 PO Last administered on 07/05/16 06 :30; Admin Dose 40 MG; Start 07/04/16 at 06:00 Atorvastatin Calcium (Lipitor) 10 mg DAILY@21 PO Last administered on 20:32; Admin Dose 10 MG; Start 07/04/16 at 21:00 Linagliptin (Tradjenta) 5 mg DAILY PO Last administered on 07/05/16 08:19; Admin Dose 5 MG; Start 07/04/16 at 09:00 Tramadol HCl (Ultram) 50 mg BID PRN PO PAIN Last administered on 07/04/16 01: 46; Admin Dose 50 MG; Start 07/04/16 at 01:30 Miscellaneous Information 1 ea NOTE XX ; Start 07/04/16 at 01:30 Glucose (Glutose) 15 gm Q15M PRN PO DECREASED GLUCOSE; Start 07/04/16 at 01:30 Glucose (Glutose) 22.5 gm Q15M PRN PO DECREASED GLUCOSE; Start 07/04/16 at 01: 30 Dextrose (D50w Syringe) 25 ml Q15M PRN IV DECREASED GLUCOSE; Start 07/04/16 at 01:30 Dextrose (D50w Syringe) 50 ml Q15M PRN IV DECREASED GLUCOSE; Start 07/04/16 at 01:30 Glucagon (Glucagen) 1 mg Q15M PRN IM DECREASED GLUCOSE; Start 07/04/16 at 01:30 Glucose (Glutose) 15 gm Q15M PRN BUCCAL DECREASED GLUCOSE; Start 07/04/16 at 01 :30 Insulin Glargine (Lantus) 20 unit QHS SC Last administered on 07/04/16 20:50; Admin Dose 20 UNIT; Start 07/04/16 at 21:00 DONNA LEWIS MD Jul 05, 2016 14:26
--- NOTE | 2016-07-05 14:48 | CARRPT ---
DATE OF PROCEDURE: 07/05/2016 PROCEDURE: Lexiscan stress SPECT. INDICATION: Chest pain. FINDINGS: Baseline heart rate 75 beats per minute. Peak heart rate 91 beats per minute. Baseline blood pressure 153/82. Stress blood pressure 142/74. Baseline EKG normal sinus rhythm, normal EKG. Stress EKG normal sinus rhythm. No ST segment or T wave changes. No arrhythmias. CONCLUSION: Normal EKG results of Lexiscan stress test. Imaging results to be reported separately. Dictated By: DONNA LEWIS MD SC/NTS Conf#: [id number] DID#: [id number] MTDD
--- NOTE | 2016-07-05 15:04 | RADRPT ---
PROCEDURE: Lexiscan myocardial perfusion study CLINICAL INDICATION: 50 -year-old patient complaining of chest pain. TECHNIQUE: Lexiscan 0.4 mg intravenously separate acquisition gated myocardial perfusion SPECT usi ng Tc 99m Myoview 30.1 mCi intravenously at stress and Tc-99m Myoview, 10.3 mCi intravenously at res t was performed using the rest/stress sequence. Poststress Myoview SPECT images were obtained in th e supine position. COMPARISON: No prior studies. FINDINGS: Perfusion images reveal small mild nonreversible perfusion abnormality in the inferior wall, appears to be somewhat worse on the resting images, and likely represent soft tissue attenuation. Lexiscan post stress gated SPECT images demonstrate no wall motion abnormalities. IMPRESSION: 1. No evidence of stress-induced ischemia. 2. No wall motion abnormalities. 3. The left ventricle ejection fraction at stress is 68%. A call report was made to Dr. Gonzales at 03:00 p.m. on July 05, 2016. RPTAT: HH .Jenn Warner MD, MD Date Time Electronically viewed and signed by .Jenn Warner MD, MD on 07/05/2016 15:04 .L/
--- NOTE | 2016-07-05 16:35 | PDOCDIS ---
Discharge Instructions CONDITION Patient Condition: Good HOME CARE INSTRUCTIONS: Special Diet: low carb ACTIVITY: Activity Restrictions: No Restrictions FOLLOW UP/APPOINTMENTS Appointments Follow up with PCP in one week ELLEN FREED MD Jul 05, 2016 16:35
--- NOTE | 2016-07-05 18:09 | DS ---
DATE OF ADMISSION: 07/03/2016 DATE OF DISCHARGE: 07/05/2016 CONSULTANTS: Dr. Mumtaz Gonzales. PROCEDURES: A 2D echocardiogram, ejection fraction 60% to 65%, normal systolic ejection fraction. Cardiolite SPECT study showed no evidence of stress-induced ischemia, no wall motion abnormality, ej ection fraction 68%. DIAGNOSES: 1. Atypical chest pain. Acute coronary syndrome was ruled out by negative troponin and negative st ress test. 2. Headache and neck pain, likely related to herniated disk. 3. Acute on chronic renal insufficiency. 4. Diabetic nephropathy. 5. Diabetes mellitus, uncontrolled, with ____ 11. 6. Essential hypertension. 7. Left elbow swelling, cellulitis, status post fall. 8. History of chronic back pain secondary to herniated disk. MEDICATIONS: 1. Amlodipine. 2. Aspirin. 3. Effient. 4. Gabapentin. 5. Gemfibrozil. 6. Lantus. 7. Losartan. 8. Metformin. 9. Omeprazole. 10. Pravastatin. 11. Januvia. 12. Fish oil. ALLERGIES: NO KNOWN DRUG ALLERGIES. HOSPITAL COURSE: This is a 50-year-old gentleman with past medical history of hypertension, diabete s mellitus, herniated disk with chronic neck and back pain. He presented to [facility] secondary to having chest pain and headache. He stated chest was pressure-like, diffuse, present with numbness in his left hand, started 4 days ago. His troponin was found to be negative. Patient stated has be en following with cardiology as outpatient. It is time for a cardiac catheterization, but due to in surance reasons, he has not been able to obtain the procedure. The pain was substernal, diffuse, ra diating to his back and neck. The patient was transferred to [facility] secondar y to request by the insurance company and patient is capitated to [facility]. The patient was seen and evaluated by cardiology. A 2D echocardiogram was obtained which showed normal ejection fraction. Patient was started on aspirin and beta fredis. Continued on statin. Seen an d evaluated by cardiology. Cardiolite SPECT study was obtained which showed no evidence of ischemia . Patient was placed on insulin sliding scale, low carbohydrate diet and Lantus. His glucose has b een mildly improving on Lantus 20 units. The patient has been continued on Tradjenta. His blood p ressure is stable with temperature 98.5, pulse 95, respiration 18, blood pressure 136/76, oxygen 96% on room air. At this time, patient is medically stable to be discharged home with a close followup with cardiology and primary care physician as outpatient. Dictated By: ELLEN FREED MD PN/NTS Conf#: [id number] DID#: [id number]
[2016-07-05] MEDS ORDERED: AMLODIPINE 5 MG TAB PO SCH (21:00)
== END 2016-07-05 17:45 | disposition home or self-care (01) | DRG 313 ==
LOC: TEL 23:55
PROVIDERS: ADMIT Internal Medicine; ATTEND Internal Medicine
PROC: 0H9EXZX Drainage of Left Lower Arm Skin, External Approach, Diagnostic (ICD-10-PCS; principal; 2016-07-04)
DX: R07.89 Other chest pain (principal); N17.9 Acute kidney failure, unspecified; E11.21 Type 2 diabetes mellitus with diabetic nephropathy; E11.65 Type 2 diabetes mellitus with hyperglycemia; L03.114 Cellulitis of left upper limb; R51 Headache; M54.2 Cervicalgia; M79.89 Other specified soft tissue disorders; I12.9 Hypertensive chronic kidney disease with stage 1 through stage 4 chronic kidney disease, or unspecified chronic kidney disease; N18.9 Chronic kidney disease, unspecified; R79.89 Other specified abnormal findings of blood chemistry; Z79.4 Long term (current) use of insulin
CPT/HCPCS: 71010; 72040; 72072; 72100; 78452; 80048; 80053; 80061; 82945; 82962; 83036; 84157; 84484; 85025; 85610; 85730; 87070; 87081; 89051; 93005; 93017; 93306; A9500; A9505; J1815; J2270; J2785

== ENCOUNTER 2016-07-12 15:25 | Outpatient (CLI) | payer OTHER ==
[~2016-07-12] VITALS: Ht 177.8 cm; Wt 90.0 kg
[~2016-07-12 15:25] MED LIST changes: -ACET500T98 PO; +GEMF600T60 PO; -HUMALOG; -LISI10TA2 PO; +LOSA100T7 PO; -METF-382 PO; +METF500T4 PO; +SITA100T8 PO; -[UNRECOGNIZED DRUG - OTHER]
[2016-07-12 15:38] VITALS: BP 132/73; PULSE 69; RESP 16; Ht 177.8 cm; Wt 90.0 kg
--- NOTE | 2016-07-12 16:22 | PN ---
Date/Time of Note Date/Time of Note DATE: 07/12/16 TIME: 16:13 Outpatient Progress Note Chief Complaint Headache/neck pain/diabetes/hypertension/chronic bursitis/back pain HPI Headaches/patient has off-and-on headache, no dizziness, patient's headache relieved with Tylenol, very impaired vision, history of migraine, blood pressure under control, Neck pain/patient has also neck pain, no tingling or numbness in the hands, no fall or injury, Diabetes/no pleuritic supple due to hypoglycemia, gastroparesis, Hypertension/patient has a headache, blood pressure under control, no n impaired vision, no local focal weakness, PUD/no nausea vomiting, hematemesis or melena, patient has heartburn, pain starts after eating after an hour, Chronic bursitis/patient has bilateral chronic bursitis, at the elbow, left side worse than the right side, Back pain/patient has chronic back pain, no loss of bladder or bowel control, Review of Systems Const: No Fever, no chills, no Wt. loss, no Fatigue, normal appetite, no diaphoresis. Eyes: No pain, no discharge, no redness, no visual change, no foreign body. ENT: No pain, no bleeding, no congestion, no sore throat, no dysphagia, no discharge or rhinitis. Lymph: No adenopathy, no tender nodes, no lymphedema. Resp: No SOB, no cough, no sputum, no wheezing, no chest pain. CV: No chest pain, no palpitaions, no COBIAN, no PND, no edema. GI: Normal appetite,epigastric pain, more after eating, no nausea, no vomiting, no diarrhea, no blood, no constipation. : No frequency, no urgency, no dysuria, no hematuria, no flank pain, no discharge, no bleeding. Musc: Lower back pain, also neck pain, no knee pain, no restricted ROM. Skin: No rash, no skin lesions, no erythema, no laceration, no bruising, no pruritus. Neuro: BOUDREAUX, off-and-on, relieved with Tylenol, no dizziness, no syncope, no seizure, no focal-weakness. Endo: No polyuria, no polydypsia, no dry-skin, no temp-intolerance. Psych: No hallucinations, no depression, no anxiety, no suicidal ideation. Ext: No edema, no pain, no ulcer, no weakness bilateral bursitis at the elbow, left side worse than the right side,. Physical Exam Vital Signs Date Time Temp Pulse Resp B/P Pulse Ox O2 Delivery O2 Flow Rate FiO2 07/12/16 15:38 97.7 69 16 132/73 97 Room Air General Appearance: A 50 year-old male who appears well-developed, well- nourished, in no acute distress. HEENT: Head normocephalic, atraumatic. Pupils equal, round, reactive to light and accommodate. Sclerae are no jaundice. Nasal turbinates pink without erythema or nasal discharge. Mucous membranes pink and moist without lesions. Oropharynx clear without any exudate or discharge. NECK: Supple. Trachea midline, No thyromegaly, No cervical lymphadenopathy, No mass, No carotid bruits, No JVD, Carotid pulses 2+ bilaterally. Mild neck discomfort, PULMONARY: Clear to auscultaion bilaterally, No retractions, Chest expansion symmetric bilaterally, no rales, no ronchi, no dulness on percussion. CARDIAC: Normal SI and S2, Regular rate and rythm, no murmur, gallop, or rub. GASTROINTESTINAL: Abdomen is soft, mild epigastric-tender, Non Rigid, No distention, Positive bowel sounds x4 quadrants, Liver normal. SKIN: Warm, dry, no rash, no bruise, no echmosis. EXTREMITIES: Bilateral lower extremities normal, no edema, no phlabitus, pulse palpable, no contracture bilateral elbow bursitis, left side worse than the right side,. MUSCULOSKELETAL: Spine Normal, Non-tender, Normal range of motion, No swelling, no deformity, no clubbing, or cyanosis, patient has lower lumbosacral discomfort , and neck discomfort, the patient has no edema to bilateral lower extremities, dorsalis pedis pulses palpable bilaterally. NEUROLOGIC: The patient is awake, alert, oriented, responding to yes/no questions appropriately, moving all extremities, cranial nerve intact, normal strenght, normal power, normal coordination, normal gait. Allergies Coded Allergies: No Known Allergy (Unverified , 01/29/14) PMH Headache/neck pain/back pain/hypertension/diabetes/history of fall in bilateral bursitis/diabetic neuropathy/hyperlipidemia Hernia repair 2014 and right knee surgery, Social Hx Patient smokes tobacco 2 per day for 20 years, patient stopped recently, he also smoked cocaine, about a year ago drinks alcohol occasionally, , Family Hx Noncontributory Patient History: Assessment/Plan Impression Headache/neck pain/diabetes/hypertension/PUD/chronic bursitis/back pain Plan Continue all medication, control the blood sugar, control of blood pressure, diabetic education done, patient also advised to follow with the primary care physician, Avoid local pressure on both bursitis site, Protonix 40 mg daily #30 [place] 5/325 1 p.o. twice daily #30 Medications Home Meds Reported Medications Losartan Potassium* (Losartan Potassium*) 100 Mg Tablet, 100 MG PO DAILY, TAB 07/04/16 Gemfibrozil* (Gemfibrozil*) 600 Mg Tablet, 600 MG PO BID, TAB 07/04/16 Sitagliptin* (Januvia*) 100 Mg Tablet, 100 MG PO DAILY, #30 TAB 07/04/16 Gabapentin* (Gabapentin*) 300 Mg Capsule, 300 MG PO TID, CAP 02/01/14 Omeprazole* (Omeprazole*) 20 Mg Capsule.dr, 20 MG PO DAILY, CAP 02/01/14 Metformin Hcl* (Metformin Hcl*) 500 Mg Tablet, 500 MG PO BID, TAB 02/01/14 Insulin Glargine* (Lantus*) 100 Unit/Ml Soln, 55 UNIT SC HS, EA 02/01/14 Aspirin Ec (Aspir 81) 81 Mg Tablet.dr, 81 MG PO DAILY, TAB 01/29/14 [Fish Oil] No Conflict Check 01/29/14 Pravastatin Sodium* (Pravastatin Sodium*) 10 Mg Tablet, 10 MG PO HS, TAB 01/29/14 Discontinued Reported Medications Insulin Detemir (Levemir Flextouch) 100 Unit/1 Ml Insuln.pen, 100 UNIT SQ 07/04/16 Tramadol HCl (Tramadol HCl) 50 Mg Tablet, 50 MG PO BID, #60 TAB 07/04/16 Amlodipine Besylate* (Amlodipine Besylate*) 5 Mg Tablet, 5 MG PO DAILY, #30 TAB 07/04/16 Acetaminophen (Acetaminophen) 500 Mg Tablet, 500 MG PO 01/29/14 [Humalog] No Conflict Check 01/29/14 [Gemsibrozil] No Conflict Check 01/29/14 Lisinopril* (Lisinopril*) 10 Mg Tablet, 10 MG PO DAILY, TAB 01/29/14 HARRIET VALENCIA MD Jul 12, 2016 16:22
== END 2016-07-12 16:25 | disposition home or self-care (01) ==
LOC: DCC 15:25
PROVIDERS: ATTEND Internal Medicine
DX: M54.2 Cervicalgia (principal); R51 Headache; E11.9 Type 2 diabetes mellitus without complications; I10 Essential (primary) hypertension; K27.9 Peptic ulcer, site unspecified, unspecified as acute or chronic, without hemorrhage or perforation; M71.9 Bursopathy, unspecified

== ENCOUNTER 2016-10-05 06:51 | Day surgery (SDC) | payer OTHER ==
[2016-10-04 10:08] VITALS: Ht 177.8 cm; Wt 90.0 kg
[2016-10-05] VITALS (20 sets, daily range): BP systolic 132–157; BP diastolic 73–85; PULSE 54–74; RESP 11–24
[~2016-10-05] VITALS: Ht 177.8 cm; Wt 90.0 kg
[2016-10-05] MEDS ORDERED: FENTAnyl 50 MCG/ML VIAL ONE (07:52)
[2016-10-05] MEDS ORDERED: MIDAZOLAM 1 MG/ML 2 ML INJ ONE (07:52)
[2016-10-05] MEDS ORDERED: VERAPAMIL 5 MG INJ ONE (07:52)
[2016-10-05] MEDS ORDERED: HEPARIN 1000 UNITS/ML 10 ML INJ ONE (07:52)
[2016-10-05] MEDS ORDERED: LIDOCAINE 1% (MDV) 20 ML INJ ONE (07:52)
[2016-10-05 07:53] LABS: BASOPHILS % 0.5 % (0.0-2.0); EOSINOPHILS # 0.3 10^3/ul (0.0-0.5); EOSINOPHILS % 4.3 % (0.0-7.0); HEMATOCRIT 38.5 % (42.0-52.0); LYMPHOCYTES # 1.8 10^3/ul (0.8-2.9); MEAN CORPUSCULAR HGB CONC 33.8 g/dl (32.0-37.0); MEAN CORPUSCULAR VOLUME 88.9 fl (82.0-101.0); MEAN PLATELET VOLUME 9.2 fl (7.4-10.4); MONOCYTE # 0.5 10^3/ul (0.3-0.9); MONOCYTES % 8.7 % (0.0-11.0); NEUTROPHIL # 3.4 10^3/ul (1.6-7.5); PLATELET COUNT 250 10^3/UL (140-415); RED BLOOD COUNT 4.33 10^6/ul (4.70-6.10); RED CELL DISTRIBUTION WIDTH 14.1 % (11.5-14.5); WHITE BLOOD COUNT 6.1 10^3/ul (4.8-10.8)
[2016-10-05] MEDS ORDERED: NITROGLYCERIN (IC) 100 MCG/ML INJ ONE (07:53)
[2016-10-05] MEDS ORDERED: METO75TA PO (07:56)
[2016-10-05] MEDS ORDERED: INSU100I27 SQ (07:56)
[2016-10-05 08:04] LABS: ADD SCAN DIFF NO
[2016-10-05 08:10] LABS: INR 0.8; PROTIME 11.1 Sec (12.2-14.2); PT RATIO 0.9
[2016-10-05 08:18] LABS: CALCIUM 9.1 mg/dl (8.4-10.2); CREATININE 1.51 mg/dl (0.61-1.24); POTASSIUM 4.6 mmol/L (3.5-5.1)
[2016-10-05] MEDS ORDERED: IODIXANOL LOCM 100 ML BTL ONE (08:29)
--- NOTE | 2016-10-05 08:39 | EN ---
Date/Time of Note Date/Time of Note DATE: 10/05/16 TIME: 08:37 Event Note Cardiology Cardiology Event Note DATE OF PROCEDURE: 10/05/2016 ELECTRIC MULE OPERATOR: Jose Alfredo Delgado MD PROCEDURES PERFORMED: 1. Left heart catheterization. 5. Transradial band applied to left wrist. PREINTERVENTION DIAGNOSIS: 1. Chest pain POSTINTERVENTION DIAGNOSES: 1. No significant coronary artery disease SEDATION: Conscious sedation with fentanyl 50 mcg IV and Versed 1 mg IV. DESCRIPTION OF PROCEDURE: The patient placed on monitoring manager, pulse oximetry and supplemental oxygen as necessary. The right wrist was prepped and draped in a sterile fashion and infiltrated with 1% lidocaine. Via the Seldinger technique, the right radial artery was accessed. A 5-Greek sheath was inserted and through this the right coronary catheter and left coronary catheter and pigtail were advanced into the right coronary artery and left coronary artery and the left ventricle. Placement confirmed by fluoroscopy and hemodynamics. CATHETERIZATION FINDINGS: 1. Left main: No significant disease. 2. LAD: Large caliber vessel with no significant disease. 3. Circumflex: Medium caliber vessel with no significant disease. 4. Obtuse marginal: Medium caliber vessel with no significant disease. 5. RCA: Large dominant vessel with no significant disease TOTAL CONTRAST: 30 cc FLUOROSCOPY TIME: 3.0 minutes. COMPLICATIONS: None. FINAL RESULTS: No significant coronary artery disease. RECOMMENDATIONS: Medical management. JOSE ALFREDO DELGADO Oct 05, 2016 08:39
[2016-10-05] MEDS ORDERED: SOD CHLORIDE 0.9% 1,000 ML IV SCH (08:40)
--- NOTE | 2016-10-08 20:56 | RADRPT ---
Vent Rate: 75 bpm RR Interval: 0 msec ID Interval: 166 msec QRS Duration: 86 msec QT Interval: 384 msec QTC Interval: 428 msec P-R-T [place]: 44 - 31 - 37 degrees Normal sinus rhythm Low voltage QRS Cannot rule out Anterior infarct , age undetermined Abnormal ECG Electronically Signed By: Moy Hurst [id number]
== END 2016-10-05 12:02 | disposition home or self-care (01) ==
LOC: SDS 06:51
PROVIDERS: ATTEND Internal Medicine
DX: I25.10 Atherosclerotic heart disease of native coronary artery without angina pectoris (principal); I10 Essential (primary) hypertension
CPT/HCPCS: 80048; 85025; 85610; 93005; 93458; C1769; C1887; J1644; J2250; J3010; Q9967; Z7610

== ENCOUNTER 2017-04-17 06:27 | Inpatient (IN) | END 2017-04-23 14:35 | disposition home or self-care (01) | DRG 872 ==

== ENCOUNTER 2017-04-26 14:28 | Outpatient (CLI) | END 2017-04-26 15:59 | disposition home or self-care (01) ==

== ENCOUNTER 2017-05-10 14:41 | Outpatient (CLI) | END 2017-05-10 17:00 | disposition home or self-care (01) ==

== ENCOUNTER 2017-08-14 12:11 | Emergency (ER) | END 2017-08-14 13:48 | disposition home or self-care (01) ==

== ENCOUNTER 2017-08-31 07:17 | Inpatient (IN) | END 2017-09-03 18:55 | disposition home health service (06) | DRG 603 ==

== ENCOUNTER 2018-08-18 09:47 | Emergency (ER) | payer OTHER ==
[~2018-08-18] VITALS: Ht 177.8 cm; Wt 102.4 kg
[~2018-08-18 09:47] MED LIST changes: +AMLO-218 PO; +ATOR10TA65 PO; +DULO30CA47 PO; +FINA5TAB4 PO; -FISH OIL; -GEMF600T60 PO; +HYDR-3605 PO; +LOSA100T15 PO; -LOSA100T7 PO; +METF500T24 PO; -METF500T4 PO; +METO75TA PO; -OMEP20CA16 PO; -PRAV10TA43 PO; +SITA100T11 PO; -SITA100T8 PO; +SUMA25TA3 PO; +TAMS0.4C2 PO
[2018-08-18 09:50] VITALS: Ht 177.8 cm; Wt 102.4 kg
[2018-08-18] MEDS ORDERED: CEFTRIAXONE 1 GM/50 ML (PMX) 50 ML IVPB STA (11:27)
[2018-08-18] MEDS ORDERED: ALBUTEROL 0.083% (NEB) 2.5 MG/3 ML AMP INH ONE (11:30)
[2018-08-18] MEDS ORDERED: INSU100I12 SQ (12:24)
[2018-08-18] MEDS ORDERED: INSU100I33 SC ×2 (12:24)
[2018-08-18] MEDS ORDERED: HYDROCODONE/APAP (5/325) TAB PO ONE (14:20)
--- NOTE | 2018-08-18 14:34 | ERD ---
ER Documentation Chief Complaint Chief Complaint COUGH X OVER A WEEK HPI This is a 52-year-old male who complains of cough for 5 to 6 days with occasional green productive sputum with no fever. He has no shortness of breath. He said this morning he had one episode of vomiting. No diarrhea no chest pain no wheezing or dyspnea on exertion. No focal neurological complaints no abdominal pain ROS All systems reviewed and are negative except as per history of present illness. Medications Home Meds Active Scripts Finasteride* (Finasteride*) 5 Mg Tablet, 5 MG PO DAILY, #30 TAB Prov:AUSTIN LUNDBERGDYA Ghada. CONTAINER FINISHING [employer]PECTOR 04/23/17 Reported Medications Insulin Lispro (Humalog Kwikpen U-100) 100 Unit/1 Ml Insuln.pen, 20 UNIT SQ TIDM A, EA 08/18/18 Insulin Glargine,Hum.rec.anlog (Basaglar Kwikpen U-100) 100 Unit/1 Ml Insuln.pen, 60 UNIT SC QHS, EA 08/18/18 Insulin Glargine,Hum.rec.anlog (Basaglar Kwikpen U-100) 100 Unit/1 Ml Insul n.pen, 80 UNIT SC QAM, EA 08/18/18 Amlodipine Besylate* (Norvasc*) 10 Mg Tablet, 10 MG PO DAILY, TAB 08/31/17 Hydrocodone/Acetaminophen (Hydrocodon-Acetaminoph 7.5-325) 1 Each Tablet, 1 EACH PO Q6 for p, TAB 08/31/17 Atorvastatin (Atorvastatin) 10 Mg Tablet, 10 MG PO QHS, #30 TAB 08/31/17 Duloxetine Hcl* (Duloxetine Hcl*) 30 Mg Capsule.dr, 30 MG PO DAILY, #30 CAP 08/31/17 Gabapentin* (Gabapentin*) 300 Mg Capsule, 300 MG PO TID, #90 CAP 08/31/17 Tamsulosin Hcl* (Tamsulosin Hcl*) 0.4 Mg Cap.er.24h, 0.4 MG PO HS, CAP 08/31/17 Losartan Potassium* (Losartan Potassium*) 100 Mg Tablet, 100 MG PO DAILY, TAB 07/04/16 Metformin Hcl* (Metformin Hcl*) 500 Mg Tablet, 500 MG PO BID, TAB 02/01/14 Aspirin Ec (Aspir 81) 81 Mg Tablet.dr, 81 MG PO DAILY, TAB 01/29/14 Discontinued Reported Medications Sumatriptan Succinate* (Sumatriptan Succinate*) 25 Mg Tablet, 25 MG PO DAILY PRN for MIGRAINE HEADACHE, TAB May repeat after 2 hours if needed; MAX 200 mg/24 hours 08/31/17 Sitagliptin* (Januvia*) 100 Mg Tablet, 100 MG PO DAILY, #30 TAB 07/04/16 Discontinued Scripts Metoprolol Tartrate (Metoprolol Tartrate) 75 Mg Tablet, 25 MG PO BID, #60 TAB Prov:LUNDBERG,MIMI V. CONTAINER FINISHING INSPECTOR 04/23/17 Insulin Glargine* (Lantus*) 100 Unit/Ml Soln, 25 UNIT SC HS, #1 EA Prov:LUNDBERG,MIMI V. CON[employer]ER FINISHING INSPECTOR 04/23/17 Allergies Allergies: Coded Allergies: No Known Allergy (Unverified , 08/18/18) PMhx/Soc History of Surgery: Yes (RIGHT KNEE, LEFT LOWER EX TOE SX) Anesthesia Reaction: No Hx Neurological Disorder: No Hx Respiratory Disorders: No Hx Cardiac Disorders: No Hx Psychiatric Problems: No Hx Miscellaneous Medical Probl: No Hx Alcohol Use: No Hx Substance Use: No Hx Tobacco Use: No Smoking Status: Never smoker FmHx Family History: No coronary disease Physical Exam Vitals Vital Signs Date Temp Pulse Resp B/P (MAP) Pulse Ox O2 O2 Flow FiO2 Time Delivery Rate 08/18/18 97.9 107 20 155/72 95 Room Air 14:07 (99) 08/18/18 85 18 96 21 11:37 08/18/18 97.9 96 22 121/59 92 09:50 (79) Physical Exam Const: Well-developed, well-nourished Head: Atraumatic, normocephalic Eyes: Normal Conjunctiva, PERRLA, EOMI, normal sclera, no nystagmus ENT: Normal External Ears, Nose and Mouth, moist mucus membranes. Neck: Full range of motion. No meningismus, no lymphadenopathy. Resp: No increased work of breathing, there is diffuse mild end expiratory wheezing and rhonchi Cardio: Regular rate and rhythm, no murmurs, S1 S2 present Abd: Soft, non tender x 4, non distended. Normal bowel sounds, no guarding or rebound, no pulsitile abdominal masses or bruits Skin: No petechiae or rashes, no ecchymosis , no maculopapular rash Back: No midline or flank tenderness Ext: No cyanosis, or edema, FROM x 4, normal inspection, neurovascularly intact x 4 Neur: Awake and alert, STR 5/5 x 4, sensation intact x 4, no focal findings, cerebellum intact Psych: Normal Mood and Affect Result Diagram: 08/18/18 1305 08/18/18 1305 Results 24 hrs Laboratory Tests Test 08/18/18 13:05 White Blood Count 12.1 10^3/ul Red Blood Count 3.90 10^6/ul Hemoglobin 11.4 g/dl Hematocrit 34.6 % Mean Corpuscular Volume 88.7 fl Mean Corpuscular Hemoglobin 29.2 pg Mean Corpuscular Hemoglobin Concent 32.9 g/dl Red Cell Distribution Width 14.0 % Platelet Count 240 10^3/UL Mean Platelet Volume 8.4 fl Immature Granulocytes % 0.400 % Neutrophils % 74.2 % Lymphocytes % 16.0 % Monocytes % 7.4 % Eosinophils % 1.6 % Basophils % 0.4 % Nucleated Red Blood Cells % 0.0 /100WBC Immature Granulocytes # 0.050 10^3/ul Neutrophils # 9.0 10^3/ul Lymphocytes # 1.9 10^3/ul Monocytes # 0.9 10^3/ul Eosinophils # 0.2 10^3/ul Basophils # 0.1 10^3/ul Nucleated Red Blood Cells # 0.0 10^3/ul Sodium Level 137 mmol/L Potassium Level 4.6 mmol/L Chloride Level 105 mmol/L Carbon Dioxide Level 24 mmol/L Anion Gap 8 Blood Urea Nitrogen 26 mg/dl Creatinine 1.52 mg/dl Est Glomerular Filtrat Rate mL/min 48 mL/min Glucose Level 194 mg/dl Calcium Level 8.9 mg/dl Current Medications Medications Dose Sig/Joyce Start Time Status Last (Trade) Ordered Route PRN Stop Time Admin Dose Reason Admin Albuterol 7.5 mg ONCE ONCE 08/18/18 DC 08/18/18 (Proventil INH 11:30 11:37 0.083% (Neb)) 08/18/18 11:31 Ceftriaxone 50 ml @ ONCE STAT 08/18/18 DC 08/18/18 Sodium 100 mls/hr IVPB 11:27 11:27 08/18/18 11:56 1 tab ONCE ONCE 08/18/18 DC Acetaminophen PO 14:20 / 08/18/18 14:24 Hydrocodone Bitart (Blaine (5/325)) Procedures/MDM Patient: RANDY DOYLE : 1965 Age: 52 Sex: M MR #: [id number] DOS: 08/18/18 1127 Ordering MD: MADELEINE MATOS DO Location: E/R Room/Bed: PROCEDURE: XR Chest. CLINICAL INDICATION: Shortness of breath . TECHNIQUE: Single frontal chest x-ray. COMPARISON: CR CHEST 07/04/2016; CR CHEST 02/01/2014 FINDINGS: The lungs are clear of acute infiltrates, edema, effusions, or masses. Low lung volumes with hilar and basilar vascular crowding.. The cardiomediastinal silhouette is unremarkable. The osseous structures are intact. IMPRESSION: No acute cardiopulmonary disease. RPTAT: GG .Arthur Seth MD, MD Date Time Electronically viewed and signed by .Arthur Seth MD, on 08/18/2018 11:58 .L/ CC: MADELEINE MATOS DO [id number] Patient received breathing treatments and steroids. The patient is feeling better after treatments. He does not have any evidence of pneumonia he has bronchitis clinically. Will discharge with his Z-Roger prednisone and albuterol inhaler Departure Diagnosis: Primary Impression: Bronchitis Condition: Stable MADELEINE MATOS DO August 18, 2018 14:34
[2018-08-18] MEDS ORDERED: PRED20TA PO (14:36)
[2018-08-18] MEDS ORDERED: ALBU8.5H8 INH (14:36)
[2018-08-18] MEDS ORDERED: AZIT250T PO (14:36)
[2018-08-18 15:15] VITALS: BP 140/65; PULSE 78; RESP 18
== END 2018-08-18 15:15 | disposition home or self-care (01) ==
LOC: E/R 09:47
DX: J40 Bronchitis, not specified as acute or chronic (principal); E11.9 Type 2 diabetes mellitus without complications; Z79.4 Long term (current) use of insulin
CPT/HCPCS: 36415; 71045; 80048; 85025; 94664; 96374; J0696; Z7502; Z7610